=== PATIENT | female | born 1995 | race Caucasian/White ===

== ENCOUNTER 2017-09-10 18:00 | Emergency (ER) | payer OTHER ==
[2017-09-10 18:08] VITALS: RESP 18
--- NOTE | 2017-09-10 18:51 | EDPHY ---
H & P Time Seen by Provider: 09/10/17 18:50 HPI/ROS: Chief complaint. Neck stiffness HPI. 22-year-old female presents emergency department with neck pain. She was fine last night and then awoke with neck pain this morning. No fever runny nose or congestion. Pain is worse with head movement. It seems to be somewhat in her jaws as well. She has been using a heating pad Tylenol with inadequate relief. No injury. She had intermittent slight blurry vision when the pain seemed to be increasing with turning her head. Otherwise her vision has been normal. No chest pain, shortness of breath, abdominal pain. No similar symptoms previously. ROS Constitutional. no fever/chills, no weakness Eyes. no problems with vision ENT. no sore throat, no nasal drainage Cardiovascular. no chest pain Respiratory. no shortness of breath, no cough Abdominal. no abdominal pain, no nausea/vomiting, no diarrhea . no problems urinating MS. Neck pain Skin. no rash Lymph. no swollen glands Neuro. no headache, no dizziness, no difficulty walking or with speech Past Medical/Surgical History: Healthy Social History: , nonsmoker, no alcohol Smoking Status: Never smoked Physical Exam: General Appearance: Alert pleasant well-developed female mild distress vital signs are stable Eyes: Pupils equal and round no pallor or injection. ENT, Mouth: Mucous membranes are moist. Respiratory: There are no retractions, lungs are clear to auscultation. Cardiovascular: Regular rate and rhythm. Gastrointestinal: Abdomen is soft and nontender, no masses, bowel sounds normal. Neurological: Awake and alert, sensory and motor exams grossly normal. Skin: Warm and dry, no rashes. Musculoskeletal: Diffuse tenderness to both sides of her neck. She does have range of motion tho painful. Extremities symmetrical, full range of motion. Psychiatric: Patient is oriented X 3, there is no agitation. Constitutional: Initial Vital Signs Temperature (C) 36.8 C 09/10/17 18:04 Heart Rate 62 09/10/17 18:04 Respiratory Rate 18 09/10/17 18:04 Blood Pressure 113/60 09/10/17 18:04 O2 Sat (%) 100 09/10/17 18:04 O2 Delivery Mode Room Air Allergies/Adverse Reactions: acetaminophen [From Percocet] Allergy (Verified 09/10/17 18:04) oxycodone [From Percocet] Allergy (Verified 09/10/17 18:04) Home Medications: Medication Instructions Recorded NK [No Known Home Meds] 09/10/17 Medical Decision Making Procedures: IV normal saline. Toradol IV ED Course/Re-evaluation: Re-evaluation at 8:05 p.m.. Patient got good relief from the Toradol. She is feeling better. She and I discussed laboratory evaluation, treatment plan including criteria for return importance of follow-up and further evaluation. She expresses understanding and agreement Differential Diagnosis: I think that this is likely torticollis. I considered of course meningitis. Nothing to suggest illness. The patient looks well. I also considered trauma. - Data Points Laboratory Results: Laboratory Results 09/10/17 18:55 09/10/17 18:55 09/10/17 09/10/17 18:55 18:55 WBC 10.84 10^3/uL H 10^3/uL (3.80-9.50) RBC 4.44 10^6/uL 10^6/uL (4.18-5.33) Hgb 13.8 g/dL g/dL (12.6-16.3) Hct 40.5 % % (38.0-47.0) MCV 91.2 fL fL (81.5-99.8) MCH 31.1 pg pg (27.9-34.1) MCHC 34.1 g/dL g/dL (32.4-36.7) RDW 11.9 % % (11.5-15.2) Plt Count 330 10^3/uL 10^3/uL (150-400) MPV 9.5 fL fL (8.7-11.7) Neut % (Auto) 69.8 % % (39.3-74.2) Lymph % (Auto) 19.5 % % (15.0-45.0) [place] % (Auto) 8.1 % % (4.5-13.0) Eos % (Auto) 1.7 % % (0.6-7.6) Baso % (Auto) 0.6 % % (0.3-1.7) Nucleat RBC Rel Count 0.0 % % (0.0-0.2) Absolute Neuts (auto) 7.58 10^3/uL H 10^3/uL (1.70-6.50) Absolute Lymphs (auto) 2.11 10^3/uL 10^3/uL (1.00-3.00) Absolute Monos (auto) 0.88 10^3/uL H 10^3/uL (0.30-0.80) Absolute Eos (auto) 0.18 10^3/uL 10^3/uL (0.03-0.40) Absolute Basos (auto) 0.06 10^3/uL 10^3/uL (0.02-0.10) Absolute Nucleated RBC 0.00 10^3/uL 10^3/uL (0-0.01) Immature Gran % 0.3 % % (0.0-1.1) Immature Gran # 0.03 10^3/uL 10^3/uL (0.00-0.10) Sodium 144 mEq/L mEq/L (135-145) Potassium 3.9 mEq/L mEq/L (3.5-5.2) Chloride 106 mEq/L mEq/L (97-110) Carbon Dioxide 24 mEq/l mEq/l (22-31) Anion Gap 14 mEq/L mEq/L (8-16) BUN 15 mg/dL mg/dL (7-23) Creatinine 0.8 mg/dL mg/dL (0.6-1.0) Estimated GFR > 60 Glucose 80 mg/dL mg/dL (70-100) Calcium 9.6 mg/dL mg/dL (8.5-10.4) Medications Given: Discontinued Medications Ketorolac Tromethamine (Toradol) 30 mg IVP EDNOW ONE Stop: 09/10/17 19:00 Last Admin: 09/10/17 19:11 Dose: 30 mg Departure - Departure Disposition: Home, Routine, Self-Care Clinical Impression: Torticollis, acute Condition: Good Instructions: Spasmodic Torticollis (ED) Additional Instructions: Tylenol 650 mg every 4-6 hours, ibuprofen 400 mg every 6 hr. Easy activity next 2-3 days. 1/2 Flexeril every 8 hr to help with muscle relaxation. Return for worsening symptoms including fever. Recheck in 2 days if not improving Referrals: NONE *PRIMARY CARE P,. [Primary Care Provider] - As per Instructions Pat Hightower MD [[facility] [place] - As per Instructions
[2017-09-10] MEDS ORDERED: KETOROLAC 30 MG/1 ML SDV IVP ONE (18:59)
[2017-09-10 19:06] LABS: PLATELET COUNT 330 10^3/uL (150-400)
[2017-09-10] MEDS ORDERED: CYCLOBENZAPRINE 10MG PREPACK#3 BTL TAKEHOME ONE (20:17)
[2017-09-10 20:41] VITALS: BP 97/49; PULSE 66; TEMP 98.1; O2SAT 97
== END 2017-09-10 20:41 | disposition home or self-care (01) ==
DX: M43.6 Torticollis (principal)
CPT/HCPCS: 96374; J1885